=== PATIENT | male | born 1960 | race American Indian/Alaskan Native ===

== ENCOUNTER 2020-05-01 16:15 | Outpatient (CLI) | payer MEDICARE | END 2020-05-01 16:16 | disposition home or self-care (01) | LOC: LAB 16:15 | PROVIDERS: ATTEND Psychiatry & Neurology Psychiatry | DX: F31.60 Bipolar disorder, current episode mixed, unspecified (principal) | CPT/HCPCS: 36415; 86592 ==

== ENCOUNTER 2020-06-03 01:00 | Emergency (ER) | payer MEDICARE ==
--- NOTE | 2020-06-03 04:03 | Emergency Department Report ---
ED ENT HPI - General Chief complaint: Upper Respiratory Infection Stated complaint: SORE THROAT Time Seen by Provider: 06/03/20 03:58 Source: patient Mode of arrival: Ambulatory Limitations: No Limitations - History of Present Illness Initial comments: CC: "My sinuses." HPI: Mr. Smith is a 60 yo male with hx of HTN, depression and polysubstance abuse who has had post nasal drip and throat irritation at night. He is currently in rehabilitation at [facility]. He is currently not prescribed medications for seasonal allergies by treatment facilty physician. MD complaint: other (nasal congestion, post nasal drip, throat irriation) -: month(s) (one month) Location: nose, throat Consistency: intermittent, other (worse at night) Improves with: other medication Associated Symptoms: sore throat, rhinorrhea - Related Data Previous Rx's Medication Instructions Recorded Last Taken Type Loratadine 10 mg PO DAILY #30 capsule 06/03/20 Unknown Rx Allergies Allergy/AdvReac Type Severity Reaction Status Date / Time No Known Allergies Allergy Unverified 06/03/20 02:35 ED Dental HPI - General Chief complaint: Upper Respiratory Infection Stated complaint: SORE THROAT Time Seen by Provider: 06/03/20 03:58 Source: patient Mode of arrival: Ambulatory Limitations: No Limitations - Related Data Previous Rx's Medication Instructions Recorded Last Taken Type Loratadine 10 mg PO DAILY #30 capsule 06/03/20 Unknown Rx Allergies Allergy/AdvReac Type Severity Reaction Status Date / Time No Known Allergies Allergy Unverified 06/03/20 02:35 ED Review of Systems ROS: Stated complaint: SORE THROAT Other details as noted in HPI Constitutional: denies: fever, malaise ENT: throat pain, other (runny nose) Respiratory: cough. denies: shortness of breath, wheezing Gastrointestinal: denies: abdominal pain, nausea, vomiting Neurological: denies: headache ED Past Medical Hx - Past Medical History Previous Medical History?: Yes Hx Hypertension: Yes Hx Psychiatric Treatment: Yes (Depression) Additional medical history: ETOH and Substance Abuse - Surgical History Past Surgical History?: No - Social History Smoking Status: Current Every Day Smoker Substance Use Type: Alcohol - Medications Home Medications: Home Medications Medication Instructions Recorded Confirmed Last Taken Type Loratadine 10 mg PO DAILY #30 capsule 06/03/20 Unknown Rx ED Physical Exam - General Limitations: No Limitations General appearance: alert, in no apparent distress - Head Head exam: Present: atraumatic, normocephalic - Eye Eye exam: Present: normal appearance - ENT ENT exam: Present: mucous membranes moist - Neck Neck exam: Present: normal inspection, full ROM - Respiratory Respiratory exam: Present: normal lung sounds bilaterally. Absent: respiratory distress, wheezes, rhonchi, stridor - Cardiovascular Cardiovascular Exam: Present: regular rate, normal rhythm, diastolic murmur. Absent: rubs, gallop - Rectal Rectal exam: Present: deferred - Extremities Exam Extremities exam: Present: normal inspection - Neurological Exam Neurological exam: Present: alert, oriented X3 - Psychiatric Psychiatric exam: Present: normal affect, normal mood - Skin Skin exam: Present: warm, dry, intact, normal color. Absent: rash ED Course Vital Signs 06/03/20 02:18 Temperature 97.7 F Pulse Rate 74 Respiratory 18 Rate Blood Pressure 135/82 O2 Sat by Pulse 100 Oximetry ED Medical Decision Making - Medical Decision Making Diagnosis: Allergic rhinitis Prescription: Loratadine Critical care attestation.: If time is entered above; I have spent that time in minutes in the direct care of this critically ill patient, excluding procedure time. ED Disposition Clinical Impression: Allergic rhinitis Disposition: DC-01 TO HOME OR SELFCARE Is pt being admited?: No Does the pt Need Aspirin: No Condition: Stable Instructions: Allergic Rhinitis, Adult, [id number] Prescriptions: Loratadine 10 mg PO DAILY #30 capsule Referrals: LIANA MACIEL MD [Staff Physician] - as needed
[2020-06-03 05:38] VITALS: BP 135/81
== END 2020-06-03 04:30 | disposition home or self-care (01) ==
LOC: ED 01:00
DX: J30.89 Other allergic rhinitis (principal); I10 Essential (primary) hypertension; F32.89 Other specified depressive episodes
CPT/HCPCS: 99282